=== PATIENT | female | born 1980 | race African-American/Black ===

== ENCOUNTER 2025-08-20 18:06 | Emergency (ER) | payer MEDICAID ==
[~2025-08-20] VITALS: Ht 167.6 cm; Wt 81.6 kg
[2025-08-20 18:56] LABS: PLATELET COUNT (AUTO) 298 K/uL (150-450); RED BLOOD CELL COUNT(AUTO) 5.09 MIL/uL (4.0-5.2); RED CELL DISTRIBUTION WIDTH 14.3 % (11.5-15.0); WHITE BLOOD COUNT (AUTO) 6.6 K/uL (4.3-11.0)
[2025-08-20 19:00] LABS: PREGNANCY TEST URINE QUAL NEGATIVE (NEGATIVE)
[2025-08-20 19:03] LABS: APPEARANCE,URINE CLEAR (CLEAR); BLOOD, URINE Negative Ery/uL (NEGATIVE); LEUKOCYTE ESTERASE ,URINE Negative (NEGATIVE); NITRITE, URINE NEGATIVE (NEGATIVE); UGLUCOSE Negative (NEGATIVE)
[2025-08-20 19:10] LABS: ASPARTATE AMINOTRANSFERASE 9.0 U/L (15-37); CALCIUM, SERUM 9.0 mg/dL (8.5-10.1); CREATININE 1.5 mg/dL (0.6-1.3); SODIUM SERUM 138.0 mmol/L (136-145); TOTAL PROTEIN, SERUM 7.3 g/dL (6.4-8.2); UREA NITROGEN, BLOOD 14.0 mg/dL (7-18)
[2025-08-20 19:15] LABS: AMPHETAMINE, URINE NEGATIVE (NEGATIVE); BARBITURATE, URINE NEGATIVE (NEGATIVE); BENZODIAZEPINE, URINE NEGATIVE (NEGATIVE); CANNABINOID, URINE NEGATIVE (NEGATIVE); COCCAINE, URINE NEGATIVE (NEGATIVE); OPIATE, URINE NEGATIVE (NEGATIVE)
[2025-08-20 19:21] LABS: CREATINE KINASE, TOTAL 122.0 U/L (26-192)
[2025-08-20] MEDS ORDERED: LIDOCAINE 1%-EPI 1:100,000 20 ML VIAL ONE (21:11)
[2025-08-20] MEDS: LIDOCAINE 1%-EPI 1:100,000 50 ML VIAL IJ ONE (21:36)
[2025-08-20 22:10] VITALS: BP 120/66; TEMP 99.4; O2SAT 99
== END 2025-08-20 22:11 | disposition home or self-care (01) ==
LOC: ER 18:13
DX: G93.2 Benign intracranial hypertension (principal); E11.40 Type 2 diabetes mellitus with diabetic neuropathy, unspecified; I10 Essential (primary) hypertension; F32.A Depression, unspecified; Z79.899 Other long term (current) drug therapy
CPT/HCPCS: 36415; 62272; 70450; 80048; 80076; 80307; 81003; 82550; 83735; 84439; 84443; 84703; 85025; 99285; J3490